=== PATIENT | female | born 1980 | race African-American/Black ===

== ENCOUNTER 2020-12-01 23:00 | Inpatient (IN) | payer OTHER ==
[~2020-12-01] VITALS: Ht 172.7 cm; Wt 57.0 kg
[2020-12-01] MEDS ORDERED: LABETALOL 5MG/ML, 20ML ONE (23:24)
--- NOTE | 2020-12-01 23:27 | NUR ---
On cr monitor, pulse ox, RR remains elevated b/p elevated. IV patent from field. Medicated per order. PCXR done. Mom at bedside with children. Will continue to monitor.
[2020-12-01] MEDS ORDERED: LABETALOL 5MG/ML, 20ML IVPush ONE (23:30)
--- NOTE | 2020-12-01 23:39 | NUR ---
Lab here drawing blood.
[2020-12-01] MEDS: PLEASE ENTER ALLERGIES MC SCH (23:45)
[2020-12-01 23:59] LABS: ALANINE AMINOTRANSFERASE 23 U/L (12-78); ALBUMIN 2.7 g/dL (3.4-5.0); ANION GAP 6 mmol/L (5-15); CALCIUM 8.4 mg/dL (8.5-10.1); CHLORIDE 114 mmol/L (98-107); CREATININE 1.96 mg/dL (0.55-1.02)
[2020-12-02] MEDS ORDERED: hydrALAzine 20 MG/ML, 1ML ONE (00:05)
[2020-12-02 00:06] LABS: BASOPHILS % (AUTO) 1 % (0-1); EOSINOPHILS % (AUTO) 4 % (1-7); LYMPHOCYTES % (AUTO) 25 % (22-44); MEAN CORPUSCULAR HEMOGLOBIN 32.9 pg (27.0-34.8); MEAN CORPUSCULAR HGB CONC 33.4 g/dL (32.4-35.8); MEAN PLATELET VOLUME 9.8 fL (7.4-10.4); MONOCYTES % (AUTO) 7 % (2-9); NEUTROPHILS % (AUTO) 63 % (42-75); PLATELET COUNT 195 x10^3/uL (130-400); RED BLOOD COUNT 2.71 x10^6/uL (3.82-5.3); RED CELL DISTRIBUTION WIDTH 16.8 % (9.6-15.2)
[2020-12-02] MEDS: PLEASE ENTER ALLERGIES MC SCH (00:08)
--- NOTE | 2020-12-02 00:09 | NUR ---
B/P remains 169/122 informed ERP, order for hydralazine IV.
[2020-12-02 00:16] LABS: ALKALINE PHOSPHATASE 80 U/L (45-117); BILIRUBIN,TOTAL 0.3 mg/dL (0.2-1.0); TOTAL PROTEIN 7.2 g/dL (6.4-8.2)
--- NOTE | 2020-12-02 00:17 | NUR ---
Mother says she is here in [place] by herself, she has no family, no friends and no one to call to watch the children. She said if she has to be admitted "either they stay with me or I leave".
[2020-12-02 00:19] LABS: TROPONIN I 0.171 ng/mL (0.000-0.045)
[2020-12-02] MEDS ORDERED: hydrALAzine 20 MG/ML, 1ML IV ONE (00:30)
--- NOTE | 2020-12-02 00:40 | NUR ---
Discussed with mother her need for admission and further treatment, informed her hospital policy and that she needs to call someone to pickers material handlers the kids. Mom states she has no one, I informed mother that I would be required by law to contact CPS if she does not find someone to pickers material handlers the children. CN informed and ERP treatment team.
--- NOTE | 2020-12-02 00:56 | NUR ---
Mother says she has no one to watch kids, she said she is going to leave [facility] and will arrange for her mom to come here from [place] and then she will come back. Discussed with mother at length the dangers of her leaving [facility] and that we highly suggest she stay. Informed Dr Perera who will also speak at length with patient. CN also informed of this ongoing situation.
--- NOTE | 2020-12-02 01:42 | NUR ---
Waiting for further orders from ERP.
--- NOTE | 2020-12-02 01:45 | NUR ---
Dr Perera to speak with mother re: POC.
[2020-12-02] MEDS ORDERED: SODIUM CHLORIDE 0.9% 1,000ML IVBOLUS ONE (02:00)
--- NOTE | 2020-12-02 02:05 | NUR ---
IVF at 100/hr NOT bolus. Pt to go to CTA. Medicated with clonidine 0.1mg po.
--- NOTE | 2020-12-02 02:40 | NUR ---
PT IN CT.
--- NOTE | 2020-12-02 02:52 | NUR ---
PT SITTING UP ON GURNEY, FACETIMING FAMILY. HYPERTENSIVE, TACHYCARDIC, TACHYPNEIC. ERP AWARE. SIDE RAILS UPX2, CALL LIGHT IN REACH, 2 SONS AT BEDSIDE. AWAITING CTA RESULTS.
--- NOTE | 2020-12-02 04:20 | NUR ---
PT RESTING ON GURNEY W/ CALL LIGHT IN REACH AND SIDE RAILS UPX2. ALL TESTS RESULTED. AT BEDSIDE FOR RECHECK.
[2020-12-02] MEDS ORDERED: NITROGLYCERIN SINGLE TAB 0.4 MG SL ONE (04:29)
[2020-12-02] MEDS ORDERED: NITROGLYCERIN 0.4 MG BOTTLE (25 TABS) SL ONE (04:30)
--- NOTE | 2020-12-02 04:42 | NUR ---
RESP AT BEDSIDE FOR BIPAP SET UP.
[2020-12-02] MEDS ORDERED: NITROGLYCERIN/D5W PMX 0 ML ONE (04:49)
--- NOTE | 2020-12-02 04:52 | NUR ---
ALLIANCE MANAGER: PT WILL BE ADMITTED AND HAS TWO CHILDREN WITH HER AGE 3 AND AGE 9. PT STATES SHE HAS NO FAMILY AND [place]. PT AGREES TO BE ADMITTED AND THAT CPS WILL ASSIST WITH TEMPORARY ASSISTANCE. CALL PLACED TO CPS
[2020-12-02] MEDS ORDERED: NITROGLYCERIN/D5W PMX 250 ML ONE (04:53)
[2020-12-02] MEDS: NITROGLYCERIN/D5W PMX 250 ML IV PRN ×4 (05:03→23:01)
--- NOTE | 2020-12-02 05:12 | NUR ---
SPOKE WITH CPS, SENDING A DOCTOR OF DENTAL SURGERY TO WARNING COORDINATION METEOROLOGIST THE KIDS, [phone]
--- NOTE | 2020-12-02 05:17 | NUR ---
ASSUMED CARE OF PT. NITRO GTT INITIATED. BIPAP IN PLACE. ADDITIONAL PIV ACCESS OBTAINED. PT REPORTS SIGNIFICANTLY IMPROVED WOB WITH BIPAP. SPO2 WNL. REMAINS HYPERTENSIVE. NITRO TITRATED PER PROTOCOL. BP/SPO2/ECG MONITORING IN PLACE. SINUS TACH ON MONITOR, HR 95. SONS REMAIN AT BEDSIDE, CALM AND COOPERATIVE. UC HAS REACHED OUT TO CPS. PT AWARE AND COOPERATIVE.
--- NOTE | 2020-12-02 05:22 | NUR ---
VERBAL ORDER RECEIVED TO UPTITRATE NITRO GTT TO 150MCG. ADJUSTED AT THIS TIME.
--- NOTE | 2020-12-02 05:39 | NUR ---
NS 100ML/HR PAUSED, OKAY PER ERP
--- NOTE | 2020-12-02 05:55 | NUR ---
Stefanie lara in [facility] - 12/02/20 at 0556 by BATSHEVA CPS AT BEDSIDE DISCUSSING TEACHER ADVISOR WITH PT.
--- NOTE | 2020-12-02 05:56 | NUR ---
CPS AT BEDSIDE DISCUSSING COMMERCIAL LEASE ADMINISTRATOR WITH PT.
--- NOTE | 2020-12-02 06:26 | NUR ---
PT OFF BIPAP TO SPEAK WITH CPS. MARKEDLY WORSE WOB. SPO2 REMAINS >90% ON RA. RR 24. PT REMAINS HYPERTENSIVE ON MAX DOSE NITRO GTT. ERP AWARE.
[2020-12-02] MEDS ORDERED: ACETAMINOPHEN 500 MG TABLET ONE (06:37)
--- NOTE | 2020-12-02 06:48 | NUR ---
CHILDREN IN CUSTODY OF CPS AWAITING GRANDMOTHER'S ARRIVAL. PT COMPLIANT AND COOPERRATIVE WITH PLAN. CO SOLO; GIVEN 1G APAP PER EMAR. NITRO GTT CONTINUED WITH MINIMAL EFFECT. BIPAP IN PLACE. POC IS ADMIT TO ICU.
[2020-12-02] MEDS ORDERED: FUROSEMIDE 40 MG/4 ML ONE (06:58)
--- NOTE | 2020-12-02 06:58 | NUR ---
REPORT TO ANA BAEZ. POC DISCUSSED WITH ERP.
[2020-12-02] MEDS ORDERED: ACETAMINOPHEN 500 MG TABLET PO ONE (07:00)
[2020-12-02] MEDS ORDERED: FUROSEMIDE 40 MG/4 ML IV ONE ×2 (07:00)
--- NOTE | 2020-12-02 07:04 | NUR ---
REASSUMING CARE OF PT AT THIS TIME. LAB AT BEDSIDE.
[2020-12-02] MEDS ORDERED: HYDRALAZINE (07:11)
[2020-12-02] MEDS ORDERED: LABETALOL (07:11)
--- NOTE | 2020-12-02 07:29 | NUR ---
PT TRANSFERED TO [facility] W/ STAND BY ASSIST. URINE COLLECTED AND SENT TO LAB. PT RETURNED TO [facility] W/O GÉNESIS. FABRICIO.
[2020-12-02 07:38] LABS: MICROSCOPIC AUTO
--- NOTE | 2020-12-02 07:41 | NUR ---
REPORT GIVEN TO ERIC PEREZ. RESP AT BEDSIDE TO DISCONNECT BIPAP AND PLACE ON NON REBREATHER. VS UNCHANGED FROM PREVIOUS ASSESSMENT. FABRICIO.
[2020-12-02 07:48] LABS: CREATININE,URINE RANDOM 44.7 mg/dL
--- NOTE | 2020-12-02 07:59 | NUR ---
PT TRANSFERED TO ICU W/O INCIDENT. VS UNCHANGED, NADN.
[2020-12-02 08:30] VITALS: BP 198/113
[2020-12-02] MEDS ORDERED: ONDANSETRON 2MG/ML, 2ML IVPush PRN (09:00)
[2020-12-02] MEDS ORDERED: LABETALOL 5MG/ML, 20ML IVPush PRN (09:00)
[2020-12-02] MEDS ORDERED: DOCUSATE 100 MG CAPSULE PO PRN (09:00)
[2020-12-02] MEDS ORDERED: FAMOTIDINE 20 MG/2 ML IVPush SCH (09:00)
[2020-12-02] MEDS ORDERED: MELATONIN 5 MG TABLET PO PRN (09:00)
[2020-12-02] MEDS ORDERED: ALBUTEROL/IPRATROPIUM 2.5MG/0.5MG, 3 ML HHN SCH (09:00)
[2020-12-02] MEDS ORDERED: ACETAMINOPHEN 325 MG TABLET PO PRN (09:00)
[2020-12-02] MEDS ORDERED: CAPTOPRIL 12.5 MG TABLET ONE ×3 (09:55→16:31)
[2020-12-02] MEDS: CAPTOPRIL 25 MG TABLET PO SCH ×3 (10:06→20:12)
[2020-12-02] MEDS: SODIUM CHLORIDE FLUSH 10ML SYR IVF SCH ×2 (10:12→20:12)
[2020-12-02 10:49] LABS: TROPONIN I 0.173 ng/mL (0.000-0.045)
[2020-12-02 10:56] LABS: D-DIMER (DIC) 2.45 ug/mlFEU (0.00-0.52); PROTIME 10.6 Seconds (9.6-11.5)
[2020-12-02] MEDS: IRON SUCROSE COMPLEX 100MG/5ML IV SCH (14:10)
[2020-12-02] MEDS: OXYcodone IR 5MG TABLET PO PRN ×2 (14:36→18:16)
[2020-12-02 15:16] LABS: TROPONIN I 0.164 ng/mL (0.000-0.045)
[2020-12-02] MEDS: FUROSEMIDE 40 MG/4 ML IV SCH (16:37)
[2020-12-02] MEDS: HEPARIN 5,000 UNITS/ML, 1ML SQ SCH (16:43)
[2020-12-02] MEDS: hydrALAzine 20 MG/ML, 1ML IVPush PRN (23:01)
[2020-12-03] MEDS: HEPARIN 5,000 UNITS/ML, 1ML SQ SCH ×3 (00:36→17:03)
[2020-12-03] MEDS: hydrALAzine 20 MG/ML, 1ML IVPush PRN (04:19)
[2020-12-03 04:36] LABS: BASOPHILS % (AUTO) 1 % (0-1); EOSINOPHILS % (AUTO) 5 % (1-7); LYMPHOCYTES % (AUTO) 21 % (22-44); MEAN CORPUSCULAR HEMOGLOBIN 32.3 pg (27.0-34.8); MEAN CORPUSCULAR HGB CONC 33.3 g/dL (32.4-35.8); MEAN PLATELET VOLUME 9.4 fL (7.4-10.4); MONOCYTES % (AUTO) 18 % (2-9); NEUTROPHILS % (AUTO) 55 % (42-75); PLATELET COUNT 212 x10^3/uL (130-400); RED BLOOD COUNT 2.82 x10^6/uL (3.82-5.3); RED CELL DISTRIBUTION WIDTH 16.2 % (9.6-15.2)
[2020-12-03 04:46] LABS: ANION GAP 8 mmol/L (5-15); CALCIUM 8.2 mg/dL (8.5-10.1); CHLORIDE 108 mmol/L (98-107); CHOLESTEROL, TOTAL 185 mg/dL (140-239); CREATININE 2.03 mg/dL (0.55-1.02); TRIGLYCERIDES 130 mg/dL (50-200); VLDL CHOLESTEROL 26 mg/dL (0-25)
[2020-12-03 04:48] LABS: CHOL/HDL RATIO 4.5; HDL CHOL % 22 % (28-40); HDL CHOLESTEROL (DIRECT) 41 mg/dL (40-60); LDL CHOLESTEROL,CALCULATED 118 mg/dL (54-169); LDL/HDL RATIO 2.9 (0.5-3.0)
[2020-12-03] MEDS: FUROSEMIDE 40 MG/4 ML IV SCH (06:28)
[2020-12-03] MEDS ORDERED: CAPTOPRIL 12.5 MG TABLET ONE (08:43)
[2020-12-03] MEDS: CAPTOPRIL 25 MG TABLET PO SCH ×3 (08:50→21:12)
[2020-12-03] MEDS: FAMOTIDINE 20 MG/2 ML IVPush SCH (08:50)
[2020-12-03] MEDS: IRON SUCROSE COMPLEX 100MG/5ML IV SCH (08:51)
[2020-12-03] MEDS: SODIUM CHLORIDE FLUSH 10ML SYR IVF SCH ×2 (08:52→21:13)
[2020-12-03] MEDS: OXYcodone IR 5MG TABLET PO PRN ×2 (09:05→21:13)
[2020-12-03] MEDS: CARVEDILOL 6.25 MG TABLET PO SCH ×2 (11:22→17:03)
[2020-12-03 14:21] VITALS: BP 123/87
[2020-12-03 14:40] VITALS: BP 129/79
[2020-12-03 18:34] LABS: ANTI-NUCLEAR ANTIBODY PATTERN NUCLEOLAR
[2020-12-03 18:35] LABS: ANA SCREEN POSITIVE (Negative)
[2020-12-03 19:20] VITALS: BP 127/80
[2020-12-04] VITALS (9 sets, daily range): BP systolic 109–155; BP diastolic 73–98
[2020-12-04] MEDS: HEPARIN 5,000 UNITS/ML, 1ML SQ SCH ×3 (00:06→17:38)
[2020-12-04] MEDS: CARVEDILOL 6.25 MG TABLET PO SCH ×2 (05:45→17:38)
[2020-12-04 05:48] LABS: ANION GAP 9 mmol/L (5-15); CALCIUM 8.4 mg/dL (8.5-10.1); CHLORIDE 106 mmol/L (98-107)
[2020-12-04 05:51] LABS: CREATININE 2.12 mg/dL (0.55-1.02)
[2020-12-04] MEDS ORDERED: FUROSEMIDE 40 MG/4 ML IV SCH (09:00)
[2020-12-04] MEDS: FAMOTIDINE 20 MG/2 ML IVPush SCH (10:21)
[2020-12-04] MEDS: IRON SUCROSE COMPLEX 100MG/5ML IV SCH (10:21)
[2020-12-04] MEDS: CAPTOPRIL 25 MG TABLET PO SCH ×3 (10:22→20:24)
[2020-12-04] MEDS: SODIUM CHLORIDE FLUSH 10ML SYR IVF SCH ×2 (10:22→20:23)
[2020-12-04] MEDS: CEFTRIAXONE 1,000 MG in DEXTROSE 5% 50 ML IVPB SCH (17:36)
[2020-12-04] MEDS: FUROSEMIDE 40 MG TABLET PO SCH (17:37)
[2020-12-04] MEDS: OXYcodone IR 5MG TABLET PO PRN ×2 (17:37→20:24)
[2020-12-05 01:26] VITALS: BP 125/82
[2020-12-05] MEDS: HEPARIN 5,000 UNITS/ML, 1ML SQ SCH ×3 (02:54→19:35)
[2020-12-05 05:07] VITALS: BP 143/93
[2020-12-05] MEDS: CARVEDILOL 6.25 MG TABLET PO SCH ×2 (05:09→18:14)
[2020-12-05 05:54] LABS: ANION GAP 7 mmol/L (5-15); CALCIUM 8.7 mg/dL (8.5-10.1); CHLORIDE 106 mmol/L (98-107); CREATININE 2.07 mg/dL (0.55-1.02)
[2020-12-05 08:50] VITALS: BP 143/96
[2020-12-05] MEDS: FUROSEMIDE 40 MG TABLET PO SCH ×2 (09:23→18:15)
[2020-12-05] MEDS: CAPTOPRIL 25 MG TABLET PO SCH ×3 (09:23→20:20)
[2020-12-05] MEDS: IRON SUCROSE COMPLEX 100MG/5ML IV SCH (09:24)
[2020-12-05] MEDS: FAMOTIDINE 20 MG/2 ML IVPush SCH (09:24)
[2020-12-05] MEDS: SODIUM CHLORIDE FLUSH 10ML SYR IVF SCH ×2 (09:24→20:36)
[2020-12-05 11:59] LABS: MEAN CORPUSCULAR HEMOGLOBIN 32.1 pg (27.0-34.8); MEAN CORPUSCULAR HGB CONC 32.8 g/dL (32.4-35.8); PLATELET COUNT 308 x10^3/uL (130-400); RED BLOOD COUNT 3.28 x10^6/uL (3.82-5.3); RED CELL DISTRIBUTION WIDTH 16.4 % (9.6-15.2)
[2020-12-05 12:07] LABS: ANION GAP 6 mmol/L (5-15); CALCIUM 8.6 mg/dL (8.5-10.1); CHLORIDE 103 mmol/L (98-107); CREATININE 2.07 mg/dL (0.55-1.02)
[2020-12-05 12:23] LABS: ANISOCYTOSIS 1+; BAND#(MANUAL) 0.07 x10^3/uL; BANDS%(MANUAL) 2 % (0-7); BASOS#(MANUAL) 0.04 x10^3/uL (0-0.1); BASOS% (MANUAL) 1 % (0-1); EOS#(MANUAL) 0.35 x10^3/uL (0.0-0.4); EOS% (MANUAL) 10 % (1-7); LYMPH#(MANUAL) 1.12 x10^3/uL (1-3.4); LYMPHS% (MANUAL) 32 % (22-44); MONOS#(MANUAL) 0.63 x10^3/uL (0.3-2.7); MONOS% (MANUAL) 18 % (2-9); SEGS% (MANUAL) 37 % (42-75)
[2020-12-05 12:24] LABS: <PLATELET ESTIMATE> ADEQUATE; <PLT MORPHOLOGY> NORMAL PLT MORPH; TARGET CELLS 1+
[2020-12-05 12:40] VITALS: BP 135/96
[2020-12-05] MEDS: CEFTRIAXONE 1,000 MG in DEXTROSE 5% 50 ML IVPB SCH (18:10)
[2020-12-05 18:57] VITALS: BP 110/77
[2020-12-05] MEDS: OXYcodone IR 5MG TABLET PO PRN (19:33)
[2020-12-06 02:07] VITALS: BP 117/78
[2020-12-06] MEDS: HEPARIN 5,000 UNITS/ML, 1ML SQ SCH ×2 (05:22→10:40)
[2020-12-06] MEDS: CARVEDILOL 6.25 MG TABLET PO SCH (05:23)
[2020-12-06 05:25] LABS: ANION GAP 6 mmol/L (5-15); CALCIUM 8.9 mg/dL (8.5-10.1); CHLORIDE 103 mmol/L (98-107)
[2020-12-06 05:28] LABS: CREATININE 2.08 mg/dL (0.55-1.02)
[2020-12-06 07:18] VITALS: BP 100/64
[2020-12-06] MEDS ORDERED: FAMOTIDINE 20 MG TABLET PO SCH (09:00)
[2020-12-06 10:13] VITALS: BP 102/69
[2020-12-06] MEDS: CAPTOPRIL 25 MG TABLET PO SCH (10:22)
[2020-12-06] MEDS: IRON SUCROSE COMPLEX 100MG/5ML IV SCH (10:39)
[2020-12-06] MEDS: SODIUM CHLORIDE FLUSH 10ML SYR IVF SCH (10:41)
[2020-12-06] MEDS: FUROSEMIDE 40 MG TABLET PO SCH (10:41)
[2020-12-06] MEDS ORDERED: BUTALB/APAP/CAFFEINE 50MG/325MG/40MG PO PRN (13:00)
[2020-12-06] MEDS ORDERED: CAPT25TA3 PO (13:45)
[2020-12-06] MEDS ORDERED: FURO40TA6 PO (13:50)
[2020-12-06] MEDS ORDERED: CARV6.2512 PO (13:50)
== END 2020-12-06 15:39 | disposition home or self-care (01) | DRG 280 ==
LOC: ED 12-02 06:04 → EDIP 12-02 06:43 → CCU 12-02 07:59 → 5SO 12-03 11:35
PROVIDERS: ADMIT Hospitalist; ATTEND Family Medicine
PROC: 5A09357 Assistance with Respiratory Ventilation, Less than 24 Consecutive Hours, Continuous Positive Airway Pressure (ICD-10-PCS; principal; 2020-12-02)
PROC: 5A0935A Assistance with Respiratory Ventilation, Less than 24 Consecutive Hours, High Flow/Velocity Cannula (ICD-10-PCS; 2020-12-02)
PROC: 5A09357 Assistance with Respiratory Ventilation, Less than 24 Consecutive Hours, Continuous Positive Airway Pressure (ICD-10-PCS; 2020-12-03)
DX: I13.0 Hypertensive heart and chronic kidney disease with heart failure and stage 1 through stage 4 chronic kidney disease, or unspecified chronic kidney disease (principal); I21.A1 Myocardial infarction type 2; I50.33 Acute on chronic diastolic (congestive) heart failure; J96.01 Acute respiratory failure with hypoxia; E87.2 Acidosis; I16.1 Hypertensive emergency; N17.9 Acute kidney failure, unspecified; N28.0 Ischemia and infarction of kidney; D50.9 Iron deficiency anemia, unspecified; I43 Cardiomyopathy in diseases classified elsewhere; I27.20 Pulmonary hypertension, unspecified; I73.00 Raynaud's syndrome without gangrene; J45.909 Unspecified asthma, uncomplicated; N18.30 Chronic kidney disease, stage 3 unspecified; N92.6 Irregular menstruation, unspecified; Z87.891 Personal history of nicotine dependence; M34.9 Systemic sclerosis, unspecified; I95.9 Hypotension, unspecified; Z88.8 Allergy status to other drugs, medicaments and biological substances; Z91.013 Allergy to seafood; Z88.2 Allergy status to sulfonamides
CPT/HCPCS: 36415; 36600; 71045; 71275; 76770; 80048; 80053; 80061; 81001; 82570; 82728; 82803; 83540; 83550; 83880; 84133; 84145; 84156; 84300; 84443; 84484; 84703; 85025; 85049; 85379; 85384; 85610; 85730; 86038; 86039; 87081; 87086; 93005; 93306; 93356; 94660; 96374; 96375; 99292; G0378; J0696; J1644; J1756; J1940; J2405; J0360; J7030